=== PATIENT | male | born 1990 | race American Indian/Alaskan Native ===

== ENCOUNTER 2018-04-12 14:11 | Emergency (ER) | payer SELFPAY ==
--- NOTE | 2018-04-12 15:08 | Emergency Department Report ---
Blank Doc - Documentation Documentation: 27 yo male presents with a frontal, throbbing,constant headache 5/10 intensity x wednesday insonmnia, cough, sneezing states knot on head denies fever, n/v/blurry vision, trauma, injuries EXAM: PEERLA, Head non tender, atraumatic NKDA PLAN medicate [facility] at [facility] (formerly [facility])
[2018-04-12 18:21] VITALS: BP 116/69
[2018-04-12] MEDS ORDERED: TYLENOL PO ONE (19:53)
[2018-04-12] MEDS ORDERED: BANOPHEN PO ONE (19:53)
[2018-04-12] MEDS ORDERED: REGLAN PO ONE (19:53)
[2018-04-12] MEDS ORDERED: DECADRON IM ONE (19:53)
--- NOTE | 2018-04-12 20:12 | Emergency Department Report ---
ED Headache HPI - General Chief Complaint: Headache Stated Complaint: HEADACHES/ FLU LIKE SYMPTOMS Time Seen by Provider: 04/12/18 15:36 - History of Present Illness Initial Comments: Patient is a 27-year-old -[place] male who presents for frontal headache 08/15 sharp this is a recovering condition for this patient in the past 2 years controlled with ibuprofen patient on ibuprofen at this time patient denies photophobia denies nausea vomiting however does complain of sinus pain and congestion postnasal drip with nonproductive cough there's no fever chills Timing/Duration: 24 hours Quality: moderate Head Injury Location: frontal Recent Head Trauma: occasional headaches Modifying Factors: improves with: other (movement activity ) Associated Symptoms: nasal congestion, nasal drainage. denies: fever/chills, nausea/vomiting Allergies/Adverse Reactions: Allergies No Known Allergies Allergy (Verified 04/12/18 15:04) Home Medications: Ambulatory Orders Acetaminophen [Tylenol Extra Strength] 1,000 mg PO QID PRN #30 tablet 04/12/18 Metoclopramide [Reglan] 10 mg PO ACHS PRN #30 tablet 04/12/18 diphenhydrAMINE [Benadryl CAP] 25 mg PO Q6HR PRN #30 capsule 04/12/18 ED Review of Systems ROS: Stated complaint: HEADACHES/ FLU LIKE SYMPTOMS Other details as noted in HPI Constitutional: denies: chills, fever Eyes: denies: eye pain, eye discharge, vision change ENT: ear pain, congestion, other (sinus pain ). denies: throat pain Respiratory: cough. denies: shortness of breath, wheezing Cardiovascular: denies: chest pain, palpitations Endocrine: no symptoms reported Gastrointestinal: denies: abdominal pain, nausea, vomiting, diarrhea Genitourinary: denies: urgency, dysuria Musculoskeletal: denies: back pain, joint swelling, arthralgia Skin: denies: rash, lesions Neurological: headache. denies: weakness, numbness, paresthesias, confusion, abnormal gait, vertigo Psychiatric: denies: anxiety, depression Hematological/Lymphatic: denies: easy bleeding, easy bruising ED Past Medical Hx - Past Medical History Previous Medical History?: No - Surgical History Past Surgical History?: No - Social History Smoking Status: Never Smoker Substance Use Type: None - Medications Home Medications: Home Medications Medication Instructions Recorded Confirmed Last Taken Type Acetaminophen [Tylenol Extra 1,000 mg PO QID PRN #30 tablet 04/12/18 Unknown Rx Strength] Metoclopramide [Reglan] 10 mg PO ACHS PRN #30 tablet 04/12/18 Unknown Rx diphenhydrAMINE [Benadryl CAP] 25 mg PO Q6HR PRN #30 capsule 04/12/18 Unknown Rx ED Physical Exam - General Limitations: No Limitations General appearance: alert, in no apparent distress - Head Head exam: Present: atraumatic, normocephalic - Eye Eye exam: Present: normal appearance, EOMI Pupils: Present: normal accommodation - ENT ENT exam: Present: normal orophraynx, mucous membranes moist, TM's normal bilaterally, normal external ear exam - Expanded ENT Exam Expanded Throat exam: Positive: normal inspection, tonsillar erythema, other (uvula midline no stridor clear post nasal drip ). Negative: tonsillomegaly, tonsillar exudate, R peritonsillar mass, L peritonsillar mass - Neck Neck exam: Present: normal inspection - Respiratory Respiratory exam: Present: normal lung sounds bilaterally. Absent: respiratory distress, wheezes, stridor, chest wall tenderness - Cardiovascular Cardiovascular Exam: Present: regular rate, normal rhythm, normal heart sounds. Absent: systolic murmur, diastolic murmur, rubs, gallop - GI/Abdominal GI/Abdominal exam: Present: soft, normal bowel sounds. Absent: tenderness, bruit, hernia - Rectal Rectal exam: Present: deferred - Extremities Exam Extremities exam: Present: normal inspection, full ROM, normal capillary refill - Back Exam Back exam: Present: normal inspection, full ROM. Absent: tenderness - Neurological Exam Neurological exam: Present: alert, oriented X3, CN II-XII intact, normal gait, reflexes normal. Absent: motor sensory deficit - Expanded Neurological Exam Expanded Patient oriented to: Present: person, place, time Speech: Present: fluid speech Cranial nerves: EOM's Intact: Normal, Gag Reflex: Normal, Tongue Deviation: Normal, Nystagmus: Normal, Facial Sensation: Normal Cerebellar function: Finger to Nose: Normal, Heel to Kemp: Normal, Romberg: Normal Upper motor neuron: Dino Neglect: Normal, Pronator Drift: Normal, Babinski Sign: Normal, Sensory Extinction: Normal Motor strength exam: RUE: 5, LUE: 5, RLE: 5, LLE: 5 Best Eye Response ([place]): (4) open spontaneously Best Motor Response ([place]): (6) obeys commands Best Verbal Response ([place]oe): (5) oriented [place] Total: 15 - Psychiatric Psychiatric exam: Present: normal affect, normal mood - Skin Skin exam: Present: warm, dry, intact, normal color. Absent: rash ED Course Vital Signs 04/12/18 04/12/18 14:39 18:06 Temperature 99.1 F 98.5 F Pulse Rate 99 H 81 Respiratory 18 15 Rate Blood Pressure 116/69 Blood Pressure 112/71 [Right] O2 Sat by Pulse 99 100 Oximetry ED Medical Decision Making - Medical Decision Making Headache improved plan DC home in stable condition prescription for Tylenol Reglan Benadryl patient will follow with PCP in 2-3 days . Given referral to [facility] for PCP affiliation patient will return to ED should symptoms worsen patient verbalized agreement and understanding discharge plan DC to home in stable condition at this time Critical care attestation.: If time is entered above; I have spent that time in minutes in the direct care of this critically ill patient, excluding procedure time. ED Disposition Clinical Impression: Headache Qualifiers: Headache type: unspecified Headache chronicity pattern: unspecified pattern Intractability: not intractable Qualified Code(s): R51 - Headache URI (upper respiratory infection) Qualifiers: URI type: unspecified viral URI Qualified Code(s): J06.9 - Acute upper respiratory infection, unspecified Disposition: DC-01 TO HOME OR SELFCARE Is pt being admited?: No Does the pt Need Aspirin: No Condition: Stable Instructions: Acute Headache (ED), Upper Respiratory Infection (ED) Prescriptions: Acetaminophen [Tylenol Extra Strength] 1,000 mg PO QID PRN #30 tablet PRN Reason: Headache diphenhydrAMINE [Benadryl CAP] 25 mg PO Q6HR PRN #30 capsule PRN Reason: Headache Metoclopramide [Reglan] 10 mg PO ACHS PRN #30 tablet PRN Reason: Headache Referrals: [facility] [Outside] - 3-5 Days Forms: Work/School Release Form(ED) Time of Disposition: 20:15
== END 2018-04-12 20:27 | disposition home or self-care (01) ==
LOC: ED 14:11
DX: J06.9 Acute upper respiratory infection, unspecified (principal); R51 Headache
CPT/HCPCS: 96372; 99282; J1100; Q0163